=== PATIENT | female | born 1940 | race Caucasian/White ===

== ENCOUNTER 2016-07-13 13:26 | Inpatient (IN) | payer OTHER, BC ==
[~2016-07-13] VITALS: Ht 157.5 cm; Wt 130.5 kg
[~2016-07-13 13:26] MED LIST: ACTONEL150 MG PO; ACTONEL35 MG PO; ADVAIR 250-501 EACH IH; ADVAIR 250/501 DISK IH; ANTACID650 MG PO; ASPIR-LOW81 MG PO; ATIVAN1 MG PO; Advair HFA 115/21 IH; CALCIO DEL MAR500 MG PO; CALCITRIOL0.25 MC1 PO; CALCITRIOL0.25 MCG PO; CALCIUM WITH M1 EAC2 PO; CELEXA40 MG PO; CO Q-10100 MG PO; COBAL-10001000 MCG/2 IJ; COUMADIN3 M1 PO; CYANOCOBAL1000 MCG/2 IM; DECADRON1 MG PO; DIASENSE MAGNE400 MG PO; DILAUDID2 MG PO; DRISDOL50000 UNIT PO; DUONEB 2.5-0.5 M3 ML AEROSOL; DUONEB3 ML IH; ERGOCALCIF50000 UNIT PO; INSULIN; IRON325 MG PO; K-DUR10 ME2 PO; KENALOG,ARISTOC15 G3 PO; LEVOFLOXACIN500 MG PO; LOPRESSOR25 MG PO; MAG-OXIDE400 MG PO; METOPROLOL TART25 MG PO; MITRAZOL POWDER30 GM TP; MONTELUKAST SOD10 MG PO; MYSOLINE50 MG PO; Mag-Ox PO; NEUTRA-PHOS,1 PACKET PO; NEXIUM40 MG PO; POTASSIUM CHLO10 ME3 PO; PRIMIDONE50 MG PO; PROTONIX40 MG PO; Rocaltrol PO; Tums,OsCal PO; ULTRAM50 MG PO; VENTOLIN HFA18 GM IH; Vitamin B-12 PO; ZANTAC300 MG PO
[2016-07-13 14:46] LABS: HEMATOCRIT 36.5 % (36.0-46.0); MCH 30.5 PG (29.0-34.0); MCHC 32.1 G/DL (30.0-36.0); MCV 95.3 FL (83-99); MEAN PLAT.VOLUME 9.5 uM^3 (9.5-12.4); PLATELET COUNT 253 K/uL (156-360); RBC DIS.WIDTH-CV 14.8 % (11.8-14.6); RBC DIS.WIDTH-SD 49.4 % (39-53); RED BLOOD COUNT 3.83 M/uL (3.80-5.20); WHITE BLOOD COUNT 6.9 K/uL (4.1-10.2)
[2016-07-13 14:56] LABS: INTER. NORMALIZED RATIO 1.2; PROTHROMBIN TIME 12.3 (9.2-11.2); PTT 28.1 (25-32)
[2016-07-13 14:57] LABS: CHLORIDE 112 mEq/L (99-109); POTASSIUM 3.4 mEq/L (3.7-5.4); SODIUM 144 mEq/L (136-147)
[2016-07-13 14:59] LABS: GLUCOSE 94 mg/dL (70-99)
[2016-07-13 15:00] LABS: ANION GAP 13 MEQ/L (2-14)
[2016-07-13 15:02] LABS: GFR ESTIMATE (CALCULATED) 27 mL/min/
[2016-07-13 15:03] LABS: UREA NITROGEN (BUN) 19 mg/dL (9-23)
[2016-07-13 15:11] LABS: TROP-I INTERPRETATION NEGATIVE; TROPONIN-I < 0.01 ng/mL (0.0-0.30)
[2016-07-13] MEDS ORDERED: CELEXA20 MG PO (16:59)
[2016-07-13] MEDS ORDERED: AMLODIPINE BES2.5 MG PO (16:59)
[2016-07-13] MEDS ORDERED: TUMS500 MG PO (17:03)
[2016-07-13] MEDS ORDERED: EYE SUPPORT PO (17:04)
[2016-07-13] MEDS ORDERED: SUPPORT PO (17:04)
[2016-07-13] MEDS ORDERED: SPIRIVA1 INHALATI IH (17:05)
[2016-07-13] MEDS ORDERED: ADVAIR 500/501 DISK IH (17:05)
[2016-07-14 01:01] LABS: TROP-I INTERPRETATION NEGATIVE; TROPONIN-I 0.01 ng/mL (0.0-0.30)
[2016-07-14 08:05] LABS: TROP-I INTERPRETATION NEGATIVE; TROPONIN-I 0.03 ng/mL (0.0-0.30)
[2016-07-14 14:43] VITALS: BP 130/71
[2016-07-14 19:49] VITALS: BP 110/57
[2016-07-14 23:35] VITALS: BP 100/56
[2016-07-15 03:23] VITALS: BP 107/53
[2016-07-15 07:10] VITALS: BP 100/57
[2016-07-15 10:18] LABS: EOSINOPHIL (%) 1.6 % (0-5); EOSINOPHIL COUNT 0.1 K/uL (0-0.3); HEMATOCRIT 34.5 % (36.0-46.0); IMMATURE GRANULOCYTE (%) 0.2 % (0.0-0.7); IMMATURE GRANULOCYTE COUNT 0.1 K/uL; MCH 30.1 PG (29.0-34.0); MCHC 31.6 G/DL (30.0-36.0); MCV 95.3 FL (83-99); MEAN PLAT.VOLUME 9.8 uM^3 (9.5-12.4); MONOCYTE (%) 13.5 % (3-12); MONOCYTE COUNT 0.9 K/uL (0-0.8); NEUTROPHIL (%) 67.6 % (45-76); NEUTROPHIL COUNT 4.3 K/uL (1.8-6.4); PLATELET COUNT 249 K/uL (156-360); RBC DIS.WIDTH-CV 14.8 % (11.8-14.6); RBC DIS.WIDTH-SD 48.5 % (39-53); RED BLOOD COUNT 3.62 M/uL (3.80-5.20); WHITE BLOOD COUNT 6.3 K/uL (4.1-10.2)
[2016-07-15 10:39] LABS: ANION GAP 11 MEQ/L (2-14); CHLORIDE 107 MEQ/L (99-109); GFR ESTIMATE (CALCULATED) 29 mL/min/; GLUCOSE 112 mg/dL (70-99); SAMPLE HEMOLYSIS CHECK 0; SAMPLE ICTERIC CHECK 0; SAMPLE LIPEMIA CHECK 0; SODIUM 139 MEQ/L (136-147); UREA NITROGEN (BUN) 20 mg/dL (9-23)
[2016-07-15 11:45] VITALS: BP 111/62
[2016-07-15 15:40] VITALS: BP 100/61
[2016-07-15 19:05] VITALS: BP 126/74
[2016-07-15 22:55] VITALS: BP 116/57
[2016-07-16 03:50] VITALS: BP 96/65
[2016-07-16 07:19] LABS: HEMATOCRIT 32.2 % (36.0-46.0); MCH 30.5 PG (29.0-34.0); MCHC 32.3 G/DL (30.0-36.0); MCV 94.4 FL (83-99); MEAN PLAT.VOLUME 9.8 uM^3 (9.5-12.4); PLATELET COUNT 216 K/uL (156-360); RBC DIS.WIDTH-SD 51.8 % (39-53); RED BLOOD COUNT 3.41 M/uL (3.80-5.20); WHITE BLOOD COUNT 5.3 K/uL (4.1-10.2)
[2016-07-16 07:42] LABS: ANION GAP 9 MEQ/L (2-14); CHLORIDE 109 MEQ/L (99-109); GFR ESTIMATE (CALCULATED) 27 mL/min/; GLUCOSE 97 mg/dL (70-99); MAGNESIUM 1.2 mg/dl (1.3-2.7); POTASSIUM 4.2 MEQ/L (3.7-5.4); SAMPLE HEMOLYSIS CHECK 0; SAMPLE ICTERIC CHECK 0; SAMPLE LIPEMIA CHECK 0; SODIUM 140 MEQ/L (136-147); UREA NITROGEN (BUN) 22 mg/dL (9-23)
[2016-07-16 07:53] LABS: EOSINOPHIL (%) 1.9 % (0-5); EOSINOPHIL COUNT 0.1 K/uL (0-0.3); IMMATURE GRANULOCYTE (%) 0.2 % (0.0-0.7); LYMPHOCYTE COUNT 0.9 K/uL (1.0-2.8); MONOCYTE (%) 17.6 % (3-12); MONOCYTE COUNT 0.9 K/uL (0-0.8); NEUTROPHIL (%) 62.4 % (45-76); NEUTROPHIL COUNT 3.3 K/uL (1.8-6.4)
[2016-07-16 08:24] VITALS: BP 97/68
[2016-07-16 19:44] VITALS: BP 103/56
[2016-07-16 23:00] VITALS: BP 117/63
[2016-07-17 03:49] VITALS: BP 116/66
[2016-07-17 06:43] LABS: EOSINOPHIL (%) 2.3 % (0-5); EOSINOPHIL COUNT 0.1 K/uL (0-0.3); HEMATOCRIT 32.6 % (36.0-46.0); IMMATURE GRANULOCYTE (%) 0.2 % (0.0-0.7); LYMPHOCYTE COUNT 0.7 K/uL (1.0-2.8); MCH 29.4 PG (29.0-34.0); MCV 94.8 FL (83-99); MEAN PLAT.VOLUME 9.6 uM^3 (9.5-12.4); MONOCYTE COUNT 0.9 K/uL (0-0.8); NEUTROPHIL (%) 67.6 % (45-76); NEUTROPHIL COUNT 3.6 K/uL (1.8-6.4); PLATELET COUNT 229 K/uL (156-360); RBC DIS.WIDTH-CV 15.1 % (11.8-14.6); RED BLOOD COUNT 3.44 M/uL (3.80-5.20); WHITE BLOOD COUNT 5.3 K/uL (4.1-10.2)
[2016-07-17 07:07] LABS: ANION GAP 10 MEQ/L (2-14); CHLORIDE 109 MEQ/L (99-109); GFR ESTIMATE (CALCULATED) 27 mL/min/; GLUCOSE 106 mg/dL (70-99); POTASSIUM 4.7 MEQ/L (3.7-5.4); SAMPLE HEMOLYSIS CHECK 0; SAMPLE ICTERIC CHECK 0; SAMPLE LIPEMIA CHECK 0; SODIUM 139 MEQ/L (136-147); UREA NITROGEN (BUN) 24 mg/dL (9-23)
[2016-07-17 07:15] VITALS: BP 122/54
[2016-07-17 08:46] LABS: MAGNESIUM 1.7 mg/dl (1.3-2.7)
[2016-07-17 10:56] VITALS: BP 124/58
[2016-07-17 19:53] VITALS: BP 145/64
[2016-07-17 23:43] VITALS: BP 130/67
[2016-07-18 03:52] VITALS: BP 116/61
[2016-07-18 06:42] LABS: EOSINOPHIL COUNT 0.2 K/uL (0-0.3); LYMPHOCYTE COUNT 0.8 K/uL (1.0-2.8); MCH 29.5 PG (29.0-34.0); MCHC 31.1 G/DL (30.0-36.0); MCV 94.6 FL (83-99); MEAN PLAT.VOLUME 9.7 uM^3 (9.5-12.4); MONOCYTE (%) 15.2 % (3-12); MONOCYTE COUNT 0.8 K/uL (0-0.8); NEUTROPHIL COUNT 3.3 K/uL (1.8-6.4); PLATELET COUNT 252 K/uL (156-360); RBC DIS.WIDTH-CV 14.9 % (11.8-14.6); RBC DIS.WIDTH-SD 51.6 % (39-53); WHITE BLOOD COUNT 4.9 K/uL (4.1-10.2)
[2016-07-18 07:13] LABS: ANION GAP 10 MEQ/L (2-14); CHLORIDE 109 MEQ/L (99-109); GFR ESTIMATE (CALCULATED) 31 mL/min/; GLUCOSE 102 mg/dL (70-99); MAGNESIUM 1.7 mg/dl (1.3-2.7); POTASSIUM 4.7 MEQ/L (3.7-5.4); SAMPLE HEMOLYSIS CHECK 0; SAMPLE ICTERIC CHECK 0; SAMPLE LIPEMIA CHECK 0; SODIUM 139 MEQ/L (136-147); UREA NITROGEN (BUN) 21 mg/dL (9-23)
[2016-07-18 07:42] VITALS: BP 132/74
[2016-07-18 09:14] LABS: Estimated Average Glucose 103 mg/dL (70-123); HEMOGLOBIN A1c (GLYCOHEMOGLOB) 5.2 % HGB (Below 5.7)
[2016-07-18 11:48] VITALS: BP 122/77
[2016-07-18 16:49] VITALS: BP 127/82
[2016-07-18 19:17] VITALS: BP 125/78
[2016-07-18 23:16] VITALS: BP 107/77
[2016-07-19 03:46] VITALS: BP 111/67
[2016-07-19 07:23] LABS: ANION GAP 8 MEQ/L (2-14); CHLORIDE 112 MEQ/L (99-109); GFR ESTIMATE (CALCULATED) 29 mL/min/; GLUCOSE 99 mg/dL (70-99); MAGNESIUM 1.7 mg/dl (1.3-2.7); POTASSIUM 4.9 MEQ/L (3.7-5.4); SAMPLE HEMOLYSIS CHECK 0; SAMPLE ICTERIC CHECK 0; SAMPLE LIPEMIA CHECK 0; SODIUM 140 MEQ/L (136-147); UREA NITROGEN (BUN) 19 mg/dL (9-23)
[2016-07-19 08:15] VITALS: BP 134/77
[2016-07-19 08:27] LABS: EOSINOPHIL (%) 3.4 % (0-5); EOSINOPHIL COUNT 0.1 K/uL (0-0.3); HEMATOCRIT 31.2 % (36.0-46.0); LYMPHOCYTE COUNT 0.7 K/uL (1.0-2.8); MCH 30.6 PG (29.0-34.0); MCHC 32.1 G/DL (30.0-36.0); MCV 95.4 FL (83-99); MONOCYTE (%) 17.1 % (3-12); MONOCYTE COUNT 0.7 K/uL (0-0.8); NEUTROPHIL (%) 61.4 % (45-76); NEUTROPHIL COUNT 2.6 K/uL (1.8-6.4); PLATELET COUNT 235 K/uL (156-360); RBC DIS.WIDTH-CV 15.1 % (11.8-14.6); RBC DIS.WIDTH-SD 52.3 % (39-53); RED BLOOD COUNT 3.27 M/uL (3.80-5.20); WHITE BLOOD COUNT 4.2 K/uL (4.1-10.2)
[2016-07-19 11:43] VITALS: BP 116/74
[2016-07-19 11:59] VITALS: BP 122/62
[2016-07-19 19:00] VITALS: BP 110/57
[2016-07-20] VITALS: BP 105/72
[2016-07-20 04:00] VITALS: BP 125/71
[2016-07-20 08:09] VITALS: BP 133/73
[2016-07-20 12:09] VITALS: BP 121/81
[2016-07-20 12:23] LABS: INTER. NORMALIZED RATIO 1.2; PROTHROMBIN TIME 11.8 (9.2-11.2)
[2016-07-20 15:32] VITALS: BP 125/80
[2016-07-20 20:00] VITALS: BP 125/78
[2016-07-21 00:05] VITALS: BP 115/65
[2016-07-21 04:13] VITALS: BP 114/71
[2016-07-21 07:39] LABS: EOSINOPHIL (%) 3.7 % (0-5); EOSINOPHIL COUNT 0.2 K/uL (0-0.3); HEMATOCRIT 33.3 % (36.0-46.0); IMMATURE GRANULOCYTE (%) 0.2 % (0.0-0.7); LYMPHOCYTE COUNT 0.9 K/uL (1.0-2.8); MCH 30.3 PG (29.0-34.0); MCHC 31.2 G/DL (30.0-36.0); MCV 97.1 FL (83-99); MEAN PLAT.VOLUME 9.8 uM^3 (9.5-12.4); MONOCYTE (%) 15.9 % (3-12); MONOCYTE COUNT 0.6 K/uL (0-0.8); NEUTROPHIL (%) 58.4 % (45-76); NEUTROPHIL COUNT 2.4 K/uL (1.8-6.4); PLATELET COUNT 243 K/uL (156-360); RBC DIS.WIDTH-CV 15.1 % (11.8-14.6); RBC DIS.WIDTH-SD 53.3 % (39-53); RED BLOOD COUNT 3.43 M/uL (3.80-5.20)
[2016-07-21 07:45] LABS: INTER. NORMALIZED RATIO 1.2
[2016-07-21 07:58] LABS: ANION GAP 8 MEQ/L (2-14); CHLORIDE 111 MEQ/L (99-109); GFR ESTIMATE (CALCULATED) 29 mL/min/; GLUCOSE 92 mg/dL (70-99); MAGNESIUM 1.7 mg/dl (1.3-2.7); POTASSIUM 5.1 MEQ/L (3.7-5.4); SAMPLE HEMOLYSIS CHECK 0; SAMPLE ICTERIC CHECK 0; SAMPLE LIPEMIA CHECK 0; SODIUM 139 MEQ/L (136-147); UREA NITROGEN (BUN) 18 mg/dL (9-23)
[2016-07-21 08:25] VITALS: BP 95/58
[2016-07-21 10:37] VITALS: BP 131/79
[2016-07-21 11:15] LABS: VANCOMYCIN, TROUGH 16.2 MCG/ML (10-20)
[2016-07-21] MEDS ORDERED: DOXYCYCLINE HY100 M3 PO (16:44)
[2016-07-21] MEDS ORDERED: COUMADIN1 MG PO (16:45)
[2016-07-21] MEDS ORDERED: DILTIAZEM 24HR180 MG PO (16:46)
[2016-07-21] MEDS ORDERED: LOPRESSOR50 MG PO (16:46)
[2016-07-21 19:48] VITALS: BP 145/85
[2016-07-21 23:51] VITALS: BP 109/65
[2016-07-22 03:25] VITALS: BP 111/63
[2016-07-22 07:03] VITALS: BP 132/77
[2016-07-22 07:50] LABS: INTER. NORMALIZED RATIO 1.2
[2016-07-22] MEDS ORDERED: LOVENOX150 MG/1 M SC (10:19)
== END 2016-07-22 13:05 | DRG 571 ==
LOC: EME 13:26 → 2EAST 18:36 → EDOF 18:36 → 2EAST 07-14 14:16
PROVIDERS: Emergency Medicine; Hospitalist; Internal Medicine; Physician Assistant Medical; Surgery
PROC: 0HBJXZZ Excision of Left Upper Leg Skin, External Approach (ICD-10-PCS; principal; 2016-07-17)
DX: L03.116 Cellulitis of left lower limb (principal); Z68.43 Body mass index [BMI] 50.0-59.9, adult; L02.416 Cutaneous abscess of left lower limb; I48.91 Unspecified atrial fibrillation; I27.2 Other secondary pulmonary hypertension; E66.01 Morbid (severe) obesity due to excess calories; I12.9 Hypertensive chronic kidney disease with stage 1 through stage 4 chronic kidney disease, or unspecified chronic kidney disease; N18.3 Chronic kidney disease, stage 3 (moderate); E87.6 Hypokalemia; J44.9 Chronic obstructive pulmonary disease, unspecified; E53.8 Deficiency of other specified B group vitamins; K21.9 Gastro-esophageal reflux disease without esophagitis; R26.2 Difficulty in walking, not elsewhere classified; Z86.711 Personal history of pulmonary embolism; F32.9 Major depressive disorder, single episode, unspecified; E11.22 Type 2 diabetes mellitus with diabetic chronic kidney disease; I08.1 Rheumatic disorders of both mitral and tricuspid valves; I89.0 Lymphedema, not elsewhere classified; I87.2 Venous insufficiency (chronic) (peripheral); R25.1 Tremor, unspecified; A48.8 Other specified bacterial diseases
CPT/HCPCS: 76882; 80048; 80202; 83036; 83605; 83735; 84484; 85025; 85027; 85610; 85730; 87040; 87070; 87075; 87076; 87205; 93005; 93306; 93971; 94640; 94640 76; 99202; 99281; 99285; J1170; J1644; J1650; J2250; J2405; J3010; J3370; J3475; J7120

== ENCOUNTER 2016-07-26 23:57 | Inpatient (IN) | payer OTHER, BC ==
[~2016-07-26] VITALS: Ht 160 cm; Wt 137.1 kg
[~2016-07-26 23:57] MED LIST changes: +ADVAIR 500/501 DISK IH; +AMLODIPINE BES2.5 MG PO; +CELEXA20 MG PO; +COUMADIN1 MG PO; +DILTIAZEM 24HR180 MG PO; +DOXYCYCLINE HY100 M3 PO; +EYE SUPPORT PO; +LOPRESSOR50 MG PO; +LOVENOX150 MG/1 M SC; +SPIRIVA1 INHALATI IH; +SUPPORT PO; +TUMS500 MG PO
[2016-07-27] VITALS (7 sets, daily range): BP systolic 104–152; BP diastolic 63–96
[2016-07-27] MEDS ORDERED: CARDIZEM CD,CA180 MG PO (00:38)
[2016-07-27] MEDS ORDERED: COUMADIN4 MG PO (00:40)
[2016-07-27] MEDS ORDERED: OMEPRAZOLE20 MG PO (00:41)
[2016-07-27] MEDS ORDERED: ZOFRAN4 MG PO (00:41)
[2016-07-27] MEDS ORDERED: DUONEB 2.5-0.5 M3 ML AEROSOL (00:43)
[2016-07-27] MEDS ORDERED: MILK OF MAGN PO (00:44)
[2016-07-27] MEDS ORDERED: ENEMA133 M2 PR (00:45)
[2016-07-27] MEDS ORDERED: DULCOLAX10 MG PR (00:45)
[2016-07-27 02:06] LABS: HEMATOCRIT 36.1 % (36.0-46.0); MCH 29.5 PG (29.0-34.0); MCHC 31.6 G/DL (30.0-36.0); MCV 93.5 FL (83-99); MEAN PLAT.VOLUME 9.6 uM^3 (9.5-12.4); PLATELET COUNT 243 K/uL (156-360); RBC DIS.WIDTH-CV 14.1 % (11.8-14.6); RBC DIS.WIDTH-SD 46.4 % (39-53); RED BLOOD COUNT 3.86 M/uL (3.80-5.20); WHITE BLOOD COUNT 6.4 K/uL (4.1-10.2)
[2016-07-27 02:16] LABS: CHLORIDE 108 mEq/L (99-109); POTASSIUM 5.1 mEq/L (3.7-5.4); SODIUM 140 mEq/L (136-147)
[2016-07-27 02:17] LABS: GLUCOSE 97 mg/dL (70-99)
[2016-07-27 02:19] LABS: ANION GAP 13 MEQ/L (2-14)
[2016-07-27 02:21] LABS: GFR ESTIMATE (CALCULATED) 33 mL/min/
[2016-07-27 02:22] LABS: UREA NITROGEN (BUN) 17 mg/dL (9-23)
[2016-07-27 02:27] LABS: TROP-I INTERPRETATION NEGATIVE; TROPONIN-I < 0.01 ng/mL (0.0-0.30)
[2016-07-27 03:12] LABS: INTER. NORMALIZED RATIO 1.3; PROTHROMBIN TIME 13.4 (9.2-11.2); PTT 26.8 (25-32)
[2016-07-27 08:45] LABS: TROP-I INTERPRETATION NEGATIVE; TROPONIN-I 0.01 ng/mL (0.0-0.30)
[2016-07-27 09:20] LABS: METH RESISTANT S AUREUS PCR NEGATIVE (NEGATIVE); PROBE CHECK PASS; SPECIMEN PROCESSING CONTROL PASS
[2016-07-27 10:05] LABS: INFLUENZA A VIRAL ANTIGEN POSITIVE; INFLUENZA B VIRAL ANTIGEN NEGATIVE
[2016-07-27 14:34] LABS: TROP-I INTERPRETATION NEGATIVE; TROPONIN-I 0.03 ng/mL (0.0-0.30)
[2016-07-28] VITALS (7 sets, daily range): BP systolic 87–126; BP diastolic 53–80
[2016-07-28 04:43] LABS: C DIFF TOXIN NEGATIVE (NEGATIVE)
[2016-07-28 04:44] LABS: PROBE CHECK PASS; SPECIMEN PROCESSING CONTROL PASS
[2016-07-28 05:57] LABS: HEMATOCRIT 33.1 % (36.0-46.0); MCH 28.9 PG (29.0-34.0); MCHC 31.1 G/DL (30.0-36.0); MEAN PLAT.VOLUME 9.6 uM^3 (9.5-12.4); PLATELET COUNT 215 K/uL (156-360); RBC DIS.WIDTH-CV 14.1 % (11.8-14.6); RBC DIS.WIDTH-SD 47.9 % (39-53); RED BLOOD COUNT 3.56 M/uL (3.80-5.20)
[2016-07-28 06:06] LABS: WHITE BLOOD COUNT 3.6 K/uL (4.1-10.2)
[2016-07-28 06:13] LABS: ANION GAP 11 MEQ/L (2-14); CHLORIDE 102 MEQ/L (99-109); GFR ESTIMATE (CALCULATED) 33 mL/min/; GLUCOSE 88 mg/dL (70-99); SAMPLE HEMOLYSIS CHECK 0; SAMPLE ICTERIC CHECK 0; SAMPLE LIPEMIA CHECK 0; SODIUM 137 MEQ/L (136-147); UREA NITROGEN (BUN) 18 mg/dL (9-23)
[2016-07-28 06:16] LABS: POTASSIUM 3.8 MEQ/L (3.7-5.4)
[2016-07-28 10:12] LABS: ALKALINE PHOSPHATASE 60 IU/L (3-129); DIRECT BILIRUBIN 0.2 mg/dL (0.0-0.3); TOTAL BILIRUBIN 0.4 MG/DL (0.0-1.0)
[2016-07-28 10:59] LABS: INTER. NORMALIZED RATIO 1.8; PROTHROMBIN TIME 19.1 (9.2-11.2)
[2016-07-29] VITALS (7 sets, daily range): BP systolic 123–137; BP diastolic 60–87
[2016-07-29 06:38] LABS: HEMATOCRIT 34.5 % (36.0-46.0); MCH 28.7 PG (29.0-34.0); MCHC 30.7 G/DL (30.0-36.0); MCV 93.5 FL (83-99); MEAN PLAT.VOLUME 9.8 uM^3 (9.5-12.4); PLATELET COUNT 239 K/uL (156-360); RBC DIS.WIDTH-CV 14.1 % (11.8-14.6); RBC DIS.WIDTH-SD 48.4 % (39-53); RED BLOOD COUNT 3.69 M/uL (3.80-5.20); WHITE BLOOD COUNT 4.1 K/uL (4.1-10.2)
[2016-07-29 06:52] LABS: INTER. NORMALIZED RATIO 1.7; PROTHROMBIN TIME 17.8 (9.2-11.2)
[2016-07-29 06:53] LABS: EOSINOPHIL (%) 0 % (0-5); IMMATURE GRANULOCYTE (%) 0.5 % (0.0-0.7); LYMPHOCYTE COUNT 0.5 K/uL (1.0-2.8); MONOCYTE (%) 17.5 % (3-12); MONOCYTE COUNT 0.7 K/uL (0-0.8); NEUTROPHIL (%) 70.1 % (45-76); NEUTROPHIL COUNT 2.9 K/uL (1.8-6.4)
[2016-07-29 07:05] LABS: ALKALINE PHOSPHATASE 65 IU/L (3-129); ANION GAP 12 MEQ/L (2-14); CHLORIDE 105 MEQ/L (99-109); GFR ESTIMATE (CALCULATED) 31 mL/min/; GLUCOSE 106 mg/dL (70-99); POTASSIUM 3.7 MEQ/L (3.7-5.4); SAMPLE HEMOLYSIS CHECK 0; SAMPLE ICTERIC CHECK 0; SAMPLE LIPEMIA CHECK 0; SODIUM 141 MEQ/L (136-147); UREA NITROGEN (BUN) 20 mg/dL (9-23)
[2016-07-29 07:09] LABS: TOTAL BILIRUBIN 0.3 MG/DL (0.0-1.0)
[2016-07-30 05:00] VITALS: BP 139/79
[2016-07-30 07:17] LABS: EOSINOPHIL (%) 0 % (0-5); HEMATOCRIT 35.9 % (36.0-46.0); IMMATURE GRANULOCYTE (%) 0.3 % (0.0-0.7); LYMPHOCYTE COUNT 0.9 K/uL (1.0-2.8); MCHC 30.9 G/DL (30.0-36.0); MCV 93.7 FL (83-99); MEAN PLAT.VOLUME 9.9 uM^3 (9.5-12.4); MONOCYTE (%) 15.3 % (3-12); MONOCYTE COUNT 0.9 K/uL (0-0.8); NEUTROPHIL (%) 68.2 % (45-76); PLATELET COUNT 275 K/uL (156-360); RBC DIS.WIDTH-CV 14.3 % (11.8-14.6); RBC DIS.WIDTH-SD 48.9 % (39-53); RED BLOOD COUNT 3.83 M/uL (3.80-5.20)
[2016-07-30 07:18] LABS: WHITE BLOOD COUNT 5.8 K/uL (4.1-10.2)
[2016-07-30 07:19] VITALS: BP 174/89
[2016-07-30 07:21] LABS: ANION GAP 9 MEQ/L (2-14); CHLORIDE 105 MEQ/L (99-109); GFR ESTIMATE (CALCULATED) 31 mL/min/; GLUCOSE 96 mg/dL (70-99); POTASSIUM 3.6 MEQ/L (3.7-5.4); SAMPLE HEMOLYSIS CHECK 0; SAMPLE ICTERIC CHECK 0; SAMPLE LIPEMIA CHECK 0; SODIUM 138 MEQ/L (136-147); UREA NITROGEN (BUN) 23 mg/dL (9-23)
[2016-07-30 08:22] LABS: INTER. NORMALIZED RATIO 1.6
[2016-07-30 11:30] VITALS: BP 154/91
[2016-07-30 16:15] VITALS: BP 144/81
[2016-07-30 19:40] VITALS: BP 139/89
[2016-07-31] VITALS (7 sets, daily range): BP systolic 118–170; BP diastolic 78–88
[2016-07-31 07:34] LABS: EOSINOPHIL (%) 0.2 % (0-5); HEMATOCRIT 34.3 % (36.0-46.0); IMMATURE GRANULOCYTE (%) 0.4 % (0.0-0.7); LYMPHOCYTE COUNT 1.1 K/uL (1.0-2.8); MCH 30.1 PG (29.0-34.0); MCHC 32.1 G/DL (30.0-36.0); MEAN PLAT.VOLUME 9.9 uM^3 (9.5-12.4); MONOCYTE (%) 14.1 % (3-12); MONOCYTE COUNT 0.7 K/uL (0-0.8); NEUTROPHIL (%) 60.7 % (45-76); NEUTROPHIL COUNT 2.8 K/uL (1.8-6.4); PLATELET COUNT 235 K/uL (156-360); RBC DIS.WIDTH-CV 14.3 % (11.8-14.6); RBC DIS.WIDTH-SD 49.4 % (39-53); RED BLOOD COUNT 3.65 M/uL (3.80-5.20); WHITE BLOOD COUNT 4.7 K/uL (4.1-10.2)
[2016-07-31 07:41] LABS: INTER. NORMALIZED RATIO 1.7; PROTHROMBIN TIME 17.1 (9.2-11.2)
[2016-07-31 08:08] LABS: ANION GAP 9 MEQ/L (2-14); CHLORIDE 106 MEQ/L (99-109); GFR ESTIMATE (CALCULATED) 31 mL/min/; GLUCOSE 92 mg/dL (70-99); POTASSIUM 3.5 MEQ/L (3.7-5.4); SAMPLE HEMOLYSIS CHECK 0; SAMPLE ICTERIC CHECK 0; SAMPLE LIPEMIA CHECK 0; SODIUM 141 MEQ/L (136-147); UREA NITROGEN (BUN) 23 mg/dL (9-23)
[2016-08-01 03:10] VITALS: BP 125/84
[2016-08-01 07:05] LABS: EOSINOPHIL (%) 0.2 % (0-5); HEMATOCRIT 36.1 % (36.0-46.0); IMMATURE GRANULOCYTE (%) 0.6 % (0.0-0.7); LYMPHOCYTE COUNT 1.3 K/uL (1.0-2.8); MCH 28.8 PG (29.0-34.0); MCV 92.8 FL (83-99); MEAN PLAT.VOLUME 9.8 uM^3 (9.5-12.4); MONOCYTE (%) 13.5 % (3-12); MONOCYTE COUNT 0.6 K/uL (0-0.8); NEUTROPHIL (%) 56.8 % (45-76); NEUTROPHIL COUNT 2.7 K/uL (1.8-6.4); PLATELET COUNT 231 K/uL (156-360); RBC DIS.WIDTH-CV 14.5 % (11.8-14.6); RBC DIS.WIDTH-SD 48.8 % (39-53); RED BLOOD COUNT 3.89 M/uL (3.80-5.20); WHITE BLOOD COUNT 4.7 K/uL (4.1-10.2)
[2016-08-01 07:26] LABS: INTER. NORMALIZED RATIO 1.8; PROTHROMBIN TIME 18.2 (9.2-11.2)
[2016-08-01 07:33] LABS: ANION GAP 10 MEQ/L (2-14); CHLORIDE 109 MEQ/L (99-109); GFR ESTIMATE (CALCULATED) 33 mL/min/; GLUCOSE 90 mg/dL (70-99); SAMPLE HEMOLYSIS CHECK 0; SAMPLE ICTERIC CHECK 0; SAMPLE LIPEMIA CHECK 0; SODIUM 143 MEQ/L (136-147); UREA NITROGEN (BUN) 20 mg/dL (9-23)
[2016-08-01 07:34] VITALS: BP 138/95
[2016-08-01 11:10] VITALS: BP 136/83
[2016-08-01] MEDS ORDERED: LOPRESSOR50 MG PO (13:04)
[2016-08-01] MEDS ORDERED: CARDIZEM90 MG PO (13:05)
[2016-08-01] MEDS ORDERED: PREDNISONE20 MG PO (13:07)
[2016-08-01] MEDS ORDERED: SSD25GM TP (13:08)
[2016-08-01] MEDS ORDERED: Zeasorb Antifungal T TP (13:10)
[2016-08-01] MEDS ORDERED: ULTRAM50 MG PO (13:19)
[2016-08-01 15:30] VITALS: BP 154/96
== END 2016-08-01 17:20 | DRG 308 ==
LOC: EME → EDBD 23:57 → EME 23:57 → 4WEST 07-27 03:44 → 4EAST 07-27 03:44 → EDOF 07-27 03:44 → 4WEST 07-27 07:40 → 4EAST 07-28 21:01
PROVIDERS: Emergency Medicine; Family Medicine; Hospitalist; Internal Medicine; Internal Medicine Cardiovascular Disease; Internal Medicine Critical Care Medicine; Student in an Organized Health Care Education/Training Program
DX: I48.91 Unspecified atrial fibrillation (principal); J96.01 Acute respiratory failure with hypoxia; J91.8 Pleural effusion in other conditions classified elsewhere; J81.1 Chronic pulmonary edema; I27.2 Other secondary pulmonary hypertension; Z86.711 Personal history of pulmonary embolism; J44.1 Chronic obstructive pulmonary disease with (acute) exacerbation; I12.9 Hypertensive chronic kidney disease with stage 1 through stage 4 chronic kidney disease, or unspecified chronic kidney disease; N18.3 Chronic kidney disease, stage 3 (moderate); E66.01 Morbid (severe) obesity due to excess calories; F39 Unspecified mood [affective] disorder; K21.9 Gastro-esophageal reflux disease without esophagitis; J10.1 Influenza due to other identified influenza virus with other respiratory manifestations; L03.116 Cellulitis of left lower limb; G47.33 Obstructive sleep apnea (adult) (pediatric); J44.0 Chronic obstructive pulmonary disease with (acute) lower respiratory infection; J20.9 Acute bronchitis, unspecified; Z87.891 Personal history of nicotine dependence; I27.81 Cor pulmonale (chronic); E04.1 Nontoxic single thyroid nodule; J98.11 Atelectasis; I70.0 Atherosclerosis of aorta; I25.10 Atherosclerotic heart disease of native coronary artery without angina pectoris; Z68.43 Body mass index [BMI] 50.0-59.9, adult; S81.812S Laceration without foreign body, left lower leg, sequela; W45.8XXS Other foreign body or object entering through skin, sequela
CPT/HCPCS: 71020; 71250; 80048; 80053; 80076; 81003; 83880; 84484; 85025; 85027; 85610; 85730; 87493; 87502; 87641; 93005; 94640; 94640 76; 94760; 94799; 99202; 99281; 99285; J1650; J1940; J2920; J2930; J7512

== ENCOUNTER 2016-08-06 19:56 | Inpatient (IN) | payer OTHER, BC ==
[~2016-08-06] VITALS: Ht 160 cm; Wt 139.5 kg
[~2016-08-06 19:56] MED LIST changes: +CARDIZEM CD,CA180 MG PO; +CARDIZEM90 MG PO; +COUMADIN4 MG PO; +DULCOLAX10 MG PR; +ENEMA133 M2 PR; +MILK OF MAGN PO; +OMEPRAZOLE20 MG PO; +PREDNISONE20 MG PO; +SSD25GM TP; +ZOFRAN4 MG PO; +Zeasorb Antifungal T TP
[2016-08-06 21:14] LABS: EOSINOPHIL (%) 0.1 % (0-5); HEMATOCRIT 27.7 % (36.0-46.0); IMMATURE GRANULOCYTE (%) 2.9 % (0.0-0.7); IMMATURE GRANULOCYTE COUNT 0.4 K/uL; INSTRUMENT ABS NEUTROPHIL CT 10.5 K/uL; LYMPHOCYTE COUNT 1.4 K/uL (1.0-2.8); MCH 29.6 PG (29.0-34.0); MCHC 31.4 G/DL (30.0-36.0); MCV 94.2 FL (83-99); MEAN PLAT.VOLUME 9.9 uM^3 (9.5-12.4); MONOCYTE (%) 7.6 % (3-12); NEUTROPHIL (%) 78.9 % (45-76); NEUTROPHIL COUNT 10.5 K/uL (1.8-6.4); NRBC (%) 0.2 /100 WBC (0-0); RBC DIS.WIDTH-SD 47.8 % (39-53)
[2016-08-06 21:19] LABS: RED BLOOD COUNT 2.94 M/uL (3.80-5.20); WHITE BLOOD COUNT 13.3 K/uL (4.1-10.2)
[2016-08-06 21:20] LABS: PLATELET COUNT 350 K/uL (156-360)
[2016-08-06 21:25] LABS: INTER. NORMALIZED RATIO 1.3; PROTHROMBIN TIME 13.7 (9.2-11.2); PTT 26.9 (25-32)
[2016-08-06 21:41] LABS: CHLORIDE 111 mEq/L (99-109); POTASSIUM 4.5 mEq/L (3.7-5.4); SODIUM 143 mEq/L (136-147)
[2016-08-06 21:43] LABS: GLUCOSE 197 mg/dL (70-99)
[2016-08-06 21:44] LABS: ANION GAP 11 MEQ/L (2-14)
[2016-08-06 21:45] LABS: TOTAL BILIRUBIN 0.5 mg/dL (0.0-1.0)
[2016-08-06 21:46] LABS: ALKALINE PHOSPHATASE 47 IU/L (3-129)
[2016-08-06 21:47] LABS: GFR ESTIMATE (CALCULATED) 36 mL/min/
[2016-08-06 21:48] LABS: TROP-I INTERPRETATION NEGATIVE; TROPONIN-I < 0.01 ng/mL (0.0-0.30); UREA NITROGEN (BUN) 18 mg/dL (9-23)
[2016-08-06 22:22] VITALS: BP 84/60
[2016-08-06 22:37] VITALS: BP 70/58
[2016-08-06 23:24] VITALS: BP 90/74
[2016-08-06 23:41] VITALS: BP 79/57
[2016-08-07] VITALS (39 sets, daily range): BP systolic 77–142; BP diastolic 40–87
[2016-08-07] MEDS ORDERED: CO Q-10-VIT E-1 EACH PO (01:33)
[2016-08-07] MEDS ORDERED: ADVAIR HFA120 INHAL1 IH (01:36)
[2016-08-07] MEDS ORDERED: COUMADIN5 MG PO (01:37)
[2016-08-07] MEDS ORDERED: ACETAMINOPHEN325 M1 PO (01:39)
[2016-08-07 04:54] LABS: ADD MIUA? NO; BILIRUBIN NEGATIVE; BLOOD NEGATIVE; COLOR YELLOW ((YELLOW)); GLUCOSE (STRIP) NEGATIVE; KETONES NEGATIVE; LEUKOCYTES NEGATIVE; NITRITE NEGATIVE; PROTEIN (STRIP) NEGATIVE; SPECIFIC GRAVITY 1.032 (1.000-1.030); UCUL ADDED? NO; UROBILINOGEN 0.2 MG/DL (0.2-1.0)
[2016-08-07 04:57] LABS: METH RESISTANT S AUREUS PCR NEGATIVE (NEGATIVE)
[2016-08-07 05:06] LABS: PROBE CHECK PASS; SPECIMEN PROCESSING CONTROL PASS
[2016-08-07 05:44] LABS: POINT-OF-CARE METER ID UU13113731
[2016-08-07 06:51] LABS: INTER. NORMALIZED RATIO 1.3; PROTHROMBIN TIME 12.8 (9.2-11.2)
[2016-08-07 07:21] LABS: INFLUENZA A VIRAL ANTIGEN POSITIVE; INFLUENZA B VIRAL ANTIGEN NEGATIVE
[2016-08-07 07:33] LABS: ALKALINE PHOSPHATASE 40 IU/L (3-129); ANION GAP 11 MEQ/L (2-14); CHLORIDE 111 MEQ/L (99-109); GFR ESTIMATE (CALCULATED) 39 mL/min/; POTASSIUM 4.3 MEQ/L (3.7-5.4); SAMPLE HEMOLYSIS CHECK 0; SAMPLE ICTERIC CHECK 0; SAMPLE LIPEMIA CHECK 0; SODIUM 145 MEQ/L (136-147); TOTAL BILIRUBIN 0.8 MG/DL (0.0-1.0); UREA NITROGEN (BUN) 18 mg/dL (9-23)
[2016-08-07 07:44] LABS: GLUCOSE 103 mg/dL (70-99)
[2016-08-07 08:09] LABS: HEMATOCRIT 28.6 % (36.0-46.0); MCHC 32.2 G/DL (30.0-36.0); MCV 93.2 FL (83-99); NRBC (%) 0.2 /100 WBC (0-0); RBC DIS.WIDTH-CV 14.2 % (11.8-14.6); RBC DIS.WIDTH-SD 47.9 % (39-53); RED BLOOD COUNT 3.07 M/uL (3.80-5.20); WHITE BLOOD COUNT 13.5 K/uL (4.1-10.2)
[2016-08-07 10:52] LABS: POINT-OF-CARE METER ID UU13113803
[2016-08-07 13:40] LABS: HEMATOCRIT 32.3 % (36.0-46.0); MCV 94.2 FL (83-99)
[2016-08-07 15:23] LABS: POINT-OF-CARE METER ID UU13113731
[2016-08-07 18:13] LABS: HEMATOCRIT 32.3 % (36.0-46.0)
[2016-08-07 18:44] LABS: POINT-OF-CARE METER ID UU14162636
[2016-08-07 22:32] LABS: POINT-OF-CARE METER ID UU13113731; POINT-OF-CARE USER ID PHATLC
[2016-08-08] VITALS (13 sets, daily range): BP systolic 0–156; BP diastolic 0–101
[2016-08-08 01:02] LABS: HEMATOCRIT 31.4 % (36.0-46.0); MCV 91.5 FL (83-99)
[2016-08-08 02:52] LABS: POINT-OF-CARE METER ID UU14174217
[2016-08-08 05:39] LABS: POINT-OF-CARE METER ID UU14174217; POINT-OF-CARE USER ID PHATLC
[2016-08-08 06:12] LABS: EOSINOPHIL (%) 1.4 % (0-5); EOSINOPHIL COUNT 0.1 K/uL (0-0.3); HEMATOCRIT 30.3 % (36.0-46.0); IMMATURE GRANULOCYTE (%) 3.7 % (0.0-0.7); IMMATURE GRANULOCYTE COUNT 0.4 K/uL; INSTRUMENT ABS NEUTROPHIL CT 6.1 K/uL; LYMPHOCYTE COUNT 1.6 K/uL (1.0-2.8); MCH 29.5 PG (29.0-34.0); MCV 92.1 FL (83-99); MONOCYTE (%) 14.1 % (3-12); MONOCYTE COUNT 1.3 K/uL (0-0.8); NEUTROPHIL (%) 64.2 % (45-76); NEUTROPHIL COUNT 6.1 K/uL (1.8-6.4); NRBC (%) 0.5 /100 WBC (0-0); RBC DIS.WIDTH-CV 14.8 % (11.8-14.6); RED BLOOD COUNT 3.29 M/uL (3.80-5.20); WHITE BLOOD COUNT 9.5 K/uL (4.1-10.2)
[2016-08-08 06:26] LABS: PLATELET COUNT 175 K/uL (156-360)
[2016-08-08 07:00] LABS: ANION GAP 9 MEQ/L (2-14); CHLORIDE 109 MEQ/L (99-109); GFR ESTIMATE (CALCULATED) 39 mL/min/; GLUCOSE 83 mg/dL (70-99); MAGNESIUM 1.2 mg/dl (1.3-2.7); SAMPLE HEMOLYSIS CHECK 0; SAMPLE ICTERIC CHECK 0; SAMPLE LIPEMIA CHECK 0; SODIUM 144 MEQ/L (136-147); UREA NITROGEN (BUN) 15 mg/dL (9-23)
[2016-08-08 10:41] LABS: POINT-OF-CARE METER ID UU14162636
[2016-08-08 16:11] LABS: POINT-OF-CARE METER ID UU14174216
[2016-08-08 21:22] LABS: POINT-OF-CARE METER ID UU13113698
[2016-08-09 00:50] LABS: HEMATOCRIT 30.9 % (36.0-46.0); MCV 92.8 FL (83-99)
[2016-08-09 04:10] VITALS: BP 128/73
[2016-08-09 07:09] LABS: ANION GAP 7 MEQ/L (2-14); CHLORIDE 107 MEQ/L (99-109); GFR ESTIMATE (CALCULATED) 42 mL/min/; GLUCOSE 86 mg/dL (70-99); MAGNESIUM 1.2 mg/dl (1.3-2.7); SAMPLE HEMOLYSIS CHECK 0; SAMPLE ICTERIC CHECK 0; SAMPLE LIPEMIA CHECK 0; SODIUM 141 MEQ/L (136-147); UREA NITROGEN (BUN) 12 mg/dL (9-23)
[2016-08-09 07:15] LABS: EOSINOPHIL (%) 1.7 % (0-5); EOSINOPHIL COUNT 0.2 K/uL (0-0.3); HEMATOCRIT 30.4 % (36.0-46.0); IMMATURE GRANULOCYTE (%) 1.9 % (0.0-0.7); IMMATURE GRANULOCYTE COUNT 0.2 K/uL; INSTRUMENT ABS NEUTROPHIL CT 5.8 K/uL; LYMPHOCYTE COUNT 1.7 K/uL (1.0-2.8); MCH 30.4 PG (29.0-34.0); MCHC 32.2 G/DL (30.0-36.0); MCV 94.4 FL (83-99); MEAN PLAT.VOLUME 10.3 uM^3 (9.5-12.4); MONOCYTE (%) 12.3 % (3-12); MONOCYTE COUNT 1.1 K/uL (0-0.8); NEUTROPHIL COUNT 5.8 K/uL (1.8-6.4); NRBC (%) 0.2 /100 WBC (0-0); PLATELET COUNT 177 K/uL (156-360); RBC DIS.WIDTH-CV 14.7 % (11.8-14.6); RBC DIS.WIDTH-SD 50.9 % (39-53); RED BLOOD COUNT 3.22 M/uL (3.80-5.20); WHITE BLOOD COUNT 8.9 K/uL (4.1-10.2)
[2016-08-09 07:37] LABS: POINT-OF-CARE METER ID UU13113698
[2016-08-09 08:44] VITALS: BP 132/74
[2016-08-09 11:50] VITALS: BP 129/81
[2016-08-09 15:48] VITALS: BP 125/67
[2016-08-09 17:58] LABS: HEMATOCRIT 33.7 % (36.0-46.0); MCV 94.4 FL (83-99)
[2016-08-09 19:12] VITALS: BP 134/73
[2016-08-09 23:08] VITALS: BP 110/68
[2016-08-10 03:02] VITALS: BP 140/91
[2016-08-10 07:22] LABS: EOSINOPHIL (%) 1.2 % (0-5); EOSINOPHIL COUNT 0.1 K/uL (0-0.3); HEMATOCRIT 31.7 % (36.0-46.0); IMMATURE GRANULOCYTE COUNT 0.1 K/uL; INSTRUMENT ABS NEUTROPHIL CT 6.5 K/uL; LYMPHOCYTE COUNT 1.4 K/uL (1.0-2.8); MCH 29.5 PG (29.0-34.0); MCHC 30.6 G/DL (30.0-36.0); MCV 96.4 FL (83-99); MEAN PLAT.VOLUME 10.1 uM^3 (9.5-12.4); MONOCYTE (%) 11.7 % (3-12); MONOCYTE COUNT 1.1 K/uL (0-0.8); NEUTROPHIL (%) 70.9 % (45-76); NEUTROPHIL COUNT 6.5 K/uL (1.8-6.4); NRBC (%) 0.2 /100 WBC (0-0); PLATELET COUNT 185 K/uL (156-360); RBC DIS.WIDTH-CV 14.6 % (11.8-14.6); RBC DIS.WIDTH-SD 50.8 % (39-53); RED BLOOD COUNT 3.29 M/uL (3.80-5.20); WHITE BLOOD COUNT 9.1 K/uL (4.1-10.2)
[2016-08-10 07:23] VITALS: BP 118/77
[2016-08-10 07:43] LABS: ANION GAP 9 MEQ/L (2-14); CHLORIDE 106 MEQ/L (99-109); GFR ESTIMATE (CALCULATED) 39 mL/min/; GLUCOSE 92 mg/dL (70-99); MAGNESIUM 1.3 mg/dl (1.3-2.7); POTASSIUM 4.6 MEQ/L (3.7-5.4); SAMPLE HEMOLYSIS CHECK 0; SAMPLE ICTERIC CHECK 0; SAMPLE LIPEMIA CHECK 0; SODIUM 140 MEQ/L (136-147); UREA NITROGEN (BUN) 15 mg/dL (9-23)
[2016-08-10 12:26] VITALS: BP 127/71
[2016-08-10 16:13] VITALS: BP 135/81
[2016-08-10 19:20] VITALS: BP 136/89
[2016-08-10 23:58] VITALS: BP 141/92
[2016-08-11 04:48] VITALS: BP 121/77
[2016-08-11 07:25] LABS: EOSINOPHIL (%) 0.3 % (0-5); HEMATOCRIT 32.5 % (36.0-46.0); IMMATURE GRANULOCYTE (%) 1.1 % (0.0-0.7); IMMATURE GRANULOCYTE COUNT 0.1 K/uL; INSTRUMENT ABS NEUTROPHIL CT 7.7 K/uL; LYMPHOCYTE COUNT 1.2 K/uL (1.0-2.8); MCH 30.2 PG (29.0-34.0); MCHC 31.1 G/DL (30.0-36.0); MCV 97.3 FL (83-99); MEAN PLAT.VOLUME 9.9 uM^3 (9.5-12.4); MONOCYTE (%) 11.2 % (3-12); MONOCYTE COUNT 1.1 K/uL (0-0.8); NEUTROPHIL (%) 75.9 % (45-76); NEUTROPHIL COUNT 7.7 K/uL (1.8-6.4); NRBC (%) 0.3 /100 WBC (0-0); PLATELET COUNT 202 K/uL (156-360); RBC DIS.WIDTH-CV 14.9 % (11.8-14.6); RBC DIS.WIDTH-SD 50.7 % (39-53); RED BLOOD COUNT 3.34 M/uL (3.80-5.20); WHITE BLOOD COUNT 10.2 K/uL (4.1-10.2)
[2016-08-11 08:08] LABS: ANION GAP 9 MEQ/L (2-14); CHLORIDE 104 MEQ/L (99-109); GFR ESTIMATE (CALCULATED) 42 mL/min/; GLUCOSE 93 mg/dL (70-99); POTASSIUM 4.6 MEQ/L (3.7-5.4); SAMPLE HEMOLYSIS CHECK 0; SAMPLE ICTERIC CHECK 0; SAMPLE LIPEMIA CHECK 0; SODIUM 139 MEQ/L (136-147); UREA NITROGEN (BUN) 20 mg/dL (9-23)
[2016-08-11 08:16] LABS: MAGNESIUM 1.5 mg/dl (1.3-2.7)
[2016-08-11 09:09] VITALS: BP 153/76
[2016-08-11 11:22] VITALS: BP 117/72
[2016-08-11 15:45] VITALS: BP 127/77
[2016-08-11 21:40] VITALS: BP 149/89
[2016-08-11 23:00] VITALS: BP 146/80
[2016-08-12 03:58] VITALS: BP 112/78
[2016-08-12 07:30] LABS: EOSINOPHIL (%) 0.6 % (0-5); EOSINOPHIL COUNT 0.1 K/uL (0-0.3); HEMATOCRIT 31.9 % (36.0-46.0); IMMATURE GRANULOCYTE (%) 1.8 % (0.0-0.7); IMMATURE GRANULOCYTE COUNT 0.2 K/uL; INSTRUMENT ABS NEUTROPHIL CT 7.8 K/uL; LYMPHOCYTE COUNT 1.4 K/uL (1.0-2.8); MCH 29.8 PG (29.0-34.0); MCHC 30.7 G/DL (30.0-36.0); MEAN PLAT.VOLUME 9.8 uM^3 (9.5-12.4); MONOCYTE (%) 11.7 % (3-12); MONOCYTE COUNT 1.3 K/uL (0-0.8); NEUTROPHIL COUNT 7.8 K/uL (1.8-6.4); PLATELET COUNT 223 K/uL (156-360); RBC DIS.WIDTH-CV 15.1 % (11.8-14.6); RBC DIS.WIDTH-SD 50.7 % (39-53); RED BLOOD COUNT 3.29 M/uL (3.80-5.20); WHITE BLOOD COUNT 10.7 K/uL (4.1-10.2)
[2016-08-12 07:52] LABS: ANION GAP 10 MEQ/L (2-14); CHLORIDE 104 MEQ/L (99-109); GFR ESTIMATE (CALCULATED) 39 mL/min/; GLUCOSE 93 mg/dL (70-99); MAGNESIUM 1.5 mg/dl (1.3-2.7); POTASSIUM 4.5 MEQ/L (3.7-5.4); SAMPLE HEMOLYSIS CHECK 0; SAMPLE ICTERIC CHECK 0; SAMPLE LIPEMIA CHECK 0; SODIUM 140 MEQ/L (136-147); UREA NITROGEN (BUN) 23 mg/dL (9-23)
[2016-08-12 08:20] VITALS: BP 120/78
[2016-08-12 11:28] VITALS: BP 117/74
[2016-08-12 19:59] VITALS: BP 121/78
[2016-08-12 23:34] VITALS: BP 120/71
[2016-08-13 03:43] VITALS: BP 100/60
[2016-08-13 07:09] LABS: EOSINOPHIL (%) 1.7 % (0-5); EOSINOPHIL COUNT 0.1 K/uL (0-0.3); HEMATOCRIT 35.3 % (36.0-46.0); IMMATURE GRANULOCYTE (%) 3.5 % (0.0-0.7); IMMATURE GRANULOCYTE COUNT 0.3 K/uL; INSTRUMENT ABS NEUTROPHIL CT 5.5 K/uL; LYMPHOCYTE COUNT 1.4 K/uL (1.0-2.8); MCH 29.4 PG (29.0-34.0); MCV 98.1 FL (83-99); MEAN PLAT.VOLUME 9.9 uM^3 (9.5-12.4); MONOCYTE (%) 12.6 % (3-12); MONOCYTE COUNT 1.1 K/uL (0-0.8); NEUTROPHIL (%) 64.8 % (45-76); NEUTROPHIL COUNT 5.5 K/uL (1.8-6.4); NRBC (%) 0.4 /100 WBC (0-0); PLATELET COUNT 230 K/uL (156-360); RBC DIS.WIDTH-CV 15.4 % (11.8-14.6); RBC DIS.WIDTH-SD 52.8 % (39-53); WHITE BLOOD COUNT 8.4 K/uL (4.1-10.2)
[2016-08-13 07:25] LABS: ANION GAP 9 MEQ/L (2-14); CHLORIDE 105 MEQ/L (99-109); GFR ESTIMATE (CALCULATED) 33 mL/min/; GLUCOSE 86 mg/dL (70-99); MAGNESIUM 1.5 mg/dl (1.3-2.7); POTASSIUM 4.8 MEQ/L (3.7-5.4); SAMPLE HEMOLYSIS CHECK 0; SAMPLE ICTERIC CHECK 0; SAMPLE LIPEMIA CHECK 0; SODIUM 140 MEQ/L (136-147); UREA NITROGEN (BUN) 25 mg/dL (9-23)
[2016-08-13 07:37] VITALS: BP 118/69
[2016-08-13 11:03] VITALS: BP 106/64
[2016-08-13 15:11] VITALS: BP 113/67
[2016-08-13 19:34] VITALS: BP 99/58
[2016-08-13 22:00] VITALS: BP 115/70
[2016-08-14 00:35] VITALS: BP 110/56
[2016-08-14 03:41] VITALS: BP 112/58
[2016-08-14 07:16] VITALS: BP 124/66
[2016-08-14 07:33] LABS: EOSINOPHIL (%) 2.1 % (0-5); EOSINOPHIL COUNT 0.2 K/uL (0-0.3); HEMATOCRIT 33.5 % (36.0-46.0); IMMATURE GRANULOCYTE (%) 3.2 % (0.0-0.7); IMMATURE GRANULOCYTE COUNT 0.2 K/uL; INSTRUMENT ABS NEUTROPHIL CT 4.9 K/uL; MCH 29.7 PG (29.0-34.0); MCHC 30.4 G/DL (30.0-36.0); MCV 97.7 FL (83-99); MEAN PLAT.VOLUME 9.8 uM^3 (9.5-12.4); MONOCYTE (%) 11.7 % (3-12); MONOCYTE COUNT 0.8 K/uL (0-0.8); NEUTROPHIL (%) 68.1 % (45-76); NEUTROPHIL COUNT 4.9 K/uL (1.8-6.4); PLATELET COUNT 214 K/uL (156-360); RBC DIS.WIDTH-CV 15.6 % (11.8-14.6); RBC DIS.WIDTH-SD 51.8 % (39-53); RED BLOOD COUNT 3.43 M/uL (3.80-5.20); WHITE BLOOD COUNT 7.2 K/uL (4.1-10.2)
[2016-08-14 08:08] LABS: ANION GAP 10 MEQ/L (2-14); CHLORIDE 107 MEQ/L (99-109); GFR ESTIMATE (CALCULATED) 36 mL/min/; GLUCOSE 96 mg/dL (70-99); MAGNESIUM 1.4 mg/dl (1.3-2.7); POTASSIUM 4.7 MEQ/L (3.7-5.4); SAMPLE HEMOLYSIS CHECK 0; SAMPLE ICTERIC CHECK 0; SAMPLE LIPEMIA CHECK 0; SODIUM 142 MEQ/L (136-147); UREA NITROGEN (BUN) 22 mg/dL (9-23)
[2016-08-14 15:07] VITALS: BP 119/63
[2016-08-14 19:56] VITALS: BP 133/66
[2016-08-15 00:03] VITALS: BP 118/70
[2016-08-15 03:47] VITALS: BP 132/73
[2016-08-15 07:38] LABS: EOSINOPHIL COUNT 0.1 K/uL (0-0.3); IMMATURE GRANULOCYTE (%) 1.6 % (0.0-0.7); IMMATURE GRANULOCYTE COUNT 0.1 K/uL; INSTRUMENT ABS NEUTROPHIL CT 4.8 K/uL; LYMPHOCYTE COUNT 1.1 K/uL (1.0-2.8); MCH 29.9 PG (29.0-34.0); MCHC 30.9 G/DL (30.0-36.0); MCV 96.8 FL (83-99); MEAN PLAT.VOLUME 9.6 uM^3 (9.5-12.4); MONOCYTE (%) 11.2 % (3-12); MONOCYTE COUNT 0.8 K/uL (0-0.8); NEUTROPHIL (%) 69.2 % (45-76); NEUTROPHIL COUNT 4.8 K/uL (1.8-6.4); PLATELET COUNT 210 K/uL (156-360); RBC DIS.WIDTH-CV 15.8 % (11.8-14.6); RED BLOOD COUNT 3.41 M/uL (3.80-5.20)
[2016-08-15 08:04] LABS: ANION GAP 7 MEQ/L (2-14); CHLORIDE 106 MEQ/L (99-109); GFR ESTIMATE (CALCULATED) 42 mL/min/; GLUCOSE 104 mg/dL (70-99); MAGNESIUM 1.3 mg/dl (1.3-2.7); POTASSIUM 4.2 MEQ/L (3.7-5.4); SAMPLE HEMOLYSIS CHECK 0; SAMPLE ICTERIC CHECK 0; SAMPLE LIPEMIA CHECK 0; SODIUM 141 MEQ/L (136-147); UREA NITROGEN (BUN) 19 mg/dL (9-23)
[2016-08-15 08:05] VITALS: BP 126/68
[2016-08-15 12:05] VITALS: BP 125/66
[2016-08-15 16:05] VITALS: BP 124/62
[2016-08-15 23:55] VITALS: BP 121/74
[2016-08-16 03:53] VITALS: BP 132/74
[2016-08-16 07:26] LABS: EOSINOPHIL (%) 2.5 % (0-5); EOSINOPHIL COUNT 0.2 K/uL (0-0.3); HEMATOCRIT 32.5 % (36.0-46.0); IMMATURE GRANULOCYTE (%) 1.5 % (0.0-0.7); IMMATURE GRANULOCYTE COUNT 0.1 K/uL; INSTRUMENT ABS NEUTROPHIL CT 4.5 K/uL; MCH 29.9 PG (29.0-34.0); MCHC 30.8 G/DL (30.0-36.0); MEAN PLAT.VOLUME 9.5 uM^3 (9.5-12.4); MONOCYTE (%) 11.6 % (3-12); MONOCYTE COUNT 0.8 K/uL (0-0.8); NEUTROPHIL (%) 68.3 % (45-76); NEUTROPHIL COUNT 4.5 K/uL (1.8-6.4); PLATELET COUNT 206 K/uL (156-360); RBC DIS.WIDTH-CV 15.9 % (11.8-14.6); RBC DIS.WIDTH-SD 53.8 % (39-53); RED BLOOD COUNT 3.35 M/uL (3.80-5.20); WHITE BLOOD COUNT 6.5 K/uL (4.1-10.2)
[2016-08-16 07:46] LABS: ANION GAP 8 MEQ/L (2-14); CHLORIDE 106 MEQ/L (99-109); GFR ESTIMATE (CALCULATED) 36 mL/min/; GLUCOSE 102 mg/dL (70-99); MAGNESIUM 1.3 mg/dl (1.3-2.7); POTASSIUM 4.3 MEQ/L (3.7-5.4); SAMPLE HEMOLYSIS CHECK 0; SAMPLE ICTERIC CHECK 0; SAMPLE LIPEMIA CHECK 0; SODIUM 142 MEQ/L (136-147); UREA NITROGEN (BUN) 16 mg/dL (9-23)
[2016-08-16 07:54] VITALS: BP 126/72
[2016-08-16 12:17] VITALS: BP 122/68
[2016-08-16 19:32] VITALS: BP 113/68
[2016-08-17] VITALS (7 sets, daily range): BP systolic 119–133; BP diastolic 58–76
[2016-08-17 07:06] LABS: EOSINOPHIL (%) 2.4 % (0-5); EOSINOPHIL COUNT 0.2 K/uL (0-0.3); HEMATOCRIT 32.8 % (36.0-46.0); IMMATURE GRANULOCYTE (%) 0.9 % (0.0-0.7); IMMATURE GRANULOCYTE COUNT 0.1 K/uL; INSTRUMENT ABS NEUTROPHIL CT 4.4 K/uL; MCH 30.1 PG (29.0-34.0); MCHC 30.8 G/DL (30.0-36.0); MCV 97.9 FL (83-99); MEAN PLAT.VOLUME 9.7 uM^3 (9.5-12.4); MONOCYTE COUNT 0.9 K/uL (0-0.8); NEUTROPHIL (%) 66.4 % (45-76); NEUTROPHIL COUNT 4.4 K/uL (1.8-6.4); PLATELET COUNT 180 K/uL (156-360); RBC DIS.WIDTH-CV 16.3 % (11.8-14.6); RBC DIS.WIDTH-SD 56.7 % (39-53); RED BLOOD COUNT 3.35 M/uL (3.80-5.20); WHITE BLOOD COUNT 6.6 K/uL (4.1-10.2)
[2016-08-17 07:27] LABS: ANION GAP 7 MEQ/L (2-14); CHLORIDE 106 MEQ/L (99-109); GFR ESTIMATE (CALCULATED) 36 mL/min/; GLUCOSE 106 mg/dL (70-99); MAGNESIUM 1.3 mg/dl (1.3-2.7); POTASSIUM 4.5 MEQ/L (3.7-5.4); SAMPLE HEMOLYSIS CHECK 0; SAMPLE ICTERIC CHECK 0; SAMPLE LIPEMIA CHECK 0; SODIUM 141 MEQ/L (136-147); UREA NITROGEN (BUN) 15 mg/dL (9-23)
[2016-08-18 07:32] LABS: EOSINOPHIL (%) 2.4 % (0-5); EOSINOPHIL COUNT 0.2 K/uL (0-0.3); HEMATOCRIT 35.1 % (36.0-46.0); IMMATURE GRANULOCYTE (%) 0.7 % (0.0-0.7); IMMATURE GRANULOCYTE COUNT 0.1 K/uL; INSTRUMENT ABS NEUTROPHIL CT 5.5 K/uL; LYMPHOCYTE COUNT 0.9 K/uL (1.0-2.8); MCH 29.7 PG (29.0-34.0); MCHC 30.5 G/DL (30.0-36.0); MCV 97.5 FL (83-99); MEAN PLAT.VOLUME 9.6 uM^3 (9.5-12.4); MONOCYTE (%) 12.8 % (3-12); NEUTROPHIL (%) 72.5 % (45-76); NEUTROPHIL COUNT 5.5 K/uL (1.8-6.4); PLATELET COUNT 190 K/uL (156-360); RBC DIS.WIDTH-SD 55.4 % (39-53); WHITE BLOOD COUNT 7.6 K/uL (4.1-10.2)
[2016-08-18 07:53] VITALS: BP 118/79
[2016-08-18 07:58] LABS: ANION GAP 7 MEQ/L (2-14); CHLORIDE 104 MEQ/L (99-109); GFR ESTIMATE (CALCULATED) 36 mL/min/; GLUCOSE 103 mg/dL (70-99); MAGNESIUM 1.3 mg/dl (1.3-2.7); POTASSIUM 4.4 MEQ/L (3.7-5.4); SAMPLE HEMOLYSIS CHECK 0; SAMPLE ICTERIC CHECK 0; SAMPLE LIPEMIA CHECK 0; SODIUM 139 MEQ/L (136-147); UREA NITROGEN (BUN) 14 mg/dL (9-23)
[2016-08-18 11:29] VITALS: BP 121/65
[2016-08-18 15:36] VITALS: BP 110/69
[2016-08-18 20:39] VITALS: BP 114/64
[2016-08-19 00:09] VITALS: BP 121/81
[2016-08-19 04:13] VITALS: BP 115/70
[2016-08-19 06:44] LABS: EOSINOPHIL (%) 2.4 % (0-5); EOSINOPHIL COUNT 0.2 K/uL (0-0.3); HEMATOCRIT 33.6 % (36.0-46.0); IMMATURE GRANULOCYTE (%) 0.8 % (0.0-0.7); IMMATURE GRANULOCYTE COUNT 0.1 K/uL; INSTRUMENT ABS NEUTROPHIL CT 4.3 K/uL; LYMPHOCYTE COUNT 0.9 K/uL (1.0-2.8); MCH 29.5 PG (29.0-34.0); MCHC 30.4 G/DL (30.0-36.0); MCV 97.1 FL (83-99); MEAN PLAT.VOLUME 10.1 uM^3 (9.5-12.4); MONOCYTE (%) 13.2 % (3-12); MONOCYTE COUNT 0.8 K/uL (0-0.8); NEUTROPHIL (%) 69.2 % (45-76); NEUTROPHIL COUNT 4.3 K/uL (1.8-6.4); PLATELET COUNT 190 K/uL (156-360); RBC DIS.WIDTH-SD 55.6 % (39-53); RED BLOOD COUNT 3.46 M/uL (3.80-5.20); WHITE BLOOD COUNT 6.2 K/uL (4.1-10.2)
[2016-08-19 07:22] LABS: ANION GAP 7 MEQ/L (2-14); CHLORIDE 104 MEQ/L (99-109); GFR ESTIMATE (CALCULATED) 36 mL/min/; GLUCOSE 102 mg/dL (70-99); MAGNESIUM 1.2 mg/dl (1.3-2.7); POTASSIUM 4.2 MEQ/L (3.7-5.4); SAMPLE HEMOLYSIS CHECK 0; SAMPLE ICTERIC CHECK 0; SAMPLE LIPEMIA CHECK 0; SODIUM 140 MEQ/L (136-147); UREA NITROGEN (BUN) 14 mg/dL (9-23)
[2016-08-19] MEDS ORDERED: CLOTRIMAZOLE-BE15 GM TP (08:15)
[2016-08-19 12:58] VITALS: BP 111/74
== END 2016-08-19 16:40 | DRG 872 ==
LOC: EME 19:56 → EDOF 08-07 01:35 → 4EAST 08-07 01:35 → 4WEST 08-07 01:35 → 5SOUTH 08-07 01:35 → 4WEST 08-07 03:28 → 4EAST 08-08 11:37 → 5SOUTH 08-11 23:01
PROVIDERS: Emergency Medicine; Hospitalist; Internal Medicine; Internal Medicine Nephrology; Obstetrics & Gynecology; Student in an Organized Health Care Education/Training Program
DX: R57.1 Hypovolemic shock (principal); D62 Acute posthemorrhagic anemia; D68.32 Hemorrhagic disorder due to extrinsic circulating anticoagulants; T45.515A Adverse effect of anticoagulants, initial encounter; I48.1 Persistent atrial fibrillation; T80.89XA Other complications following infusion, transfusion and therapeutic injection, initial encounter; S30.1XXA Contusion of abdominal wall, initial encounter; I27.2 Other secondary pulmonary hypertension; N18.3 Chronic kidney disease, stage 3 (moderate); J44.9 Chronic obstructive pulmonary disease, unspecified; K21.9 Gastro-esophageal reflux disease without esophagitis; E66.01 Morbid (severe) obesity due to excess calories; Z68.43 Body mass index [BMI] 50.0-59.9, adult; G25.0 Essential tremor; I89.0 Lymphedema, not elsewhere classified; J45.909 Unspecified asthma, uncomplicated; L90.5 Scar conditions and fibrosis of skin; L30.4 Erythema intertrigo; Z86.711 Personal history of pulmonary embolism; Z94.5 Skin transplant status; Z87.828 Personal history of other (healed) physical injury and trauma; Z75.1 Person awaiting admission to adequate facility elsewhere
CPT/HCPCS: 71010; 74176; 74177; 80048; 80053; 81003; 82948; 83605; 83735; 84100; 84484; 85014; 85018; 85025; 85027; 85610; 85730; 86850; 86900; 86901; 86920; 87502; 87641; 93005; 94640; 94640 76; 99202; J0696; J1815; J2405; J2720; J2920; J7030; J7050; J7120; P9016; P9017; S0028

== ENCOUNTER 2016-11-19 15:32 | Emergency (ER) | payer OTHER, BC ==
[~2016-11-19] VITALS: Ht 157.5 cm; Wt 128.3 kg
[~2016-11-19 15:32] MED LIST changes: +ACETAMINOPHEN325 M1 PO; +ADVAIR HFA120 INHAL1 IH; +CLOTRIMAZOLE-BE15 GM TP; +CO Q-10-VIT E-1 EACH PO; +COUMADIN5 MG PO
[2016-11-19] MEDS ORDERED: CARDIZEM60 MG PO (15:41)
[2016-11-19] MEDS ORDERED: PRIMIDONE50 MG PO (15:42)
[2016-11-19] MEDS ORDERED: CITALOPRAM HBR20 MG PO (15:43)
[2016-11-19] MEDS ORDERED: SPIRIVA1 INHALATI IH (15:44)
[2016-11-19] MEDS ORDERED: MGO400 MG PO (15:44)
[2016-11-19] MEDS ORDERED: FISH OIL 500 M1 EAC4 PO (15:45)
[2016-11-19] MEDS ORDERED: MONTELUKAST SOD10 MG PO (15:45)
[2016-11-19] MEDS ORDERED: METOPROLOL TART75 MG PO (15:45)
[2016-11-19] MEDS ORDERED: VENTOLIN HFA18 GM IH (15:47)
[2016-11-19] MEDS ORDERED: ADVAIR HFA120 INHAL1 IH (15:48)
[2016-11-19] MEDS ORDERED: VITAMIN D2000 UNI1 PO (15:48)
[2016-11-19] MEDS ORDERED: OMEPRAZOLE20 M2 PO (15:49)
[2016-11-19] MEDS ORDERED: FERROUS SULFAT325 MG PO (15:49)
[2016-11-19] MEDS ORDERED: DAILY VALUE1 EACH PO (15:49)
[2016-11-19] MEDS ORDERED: ASPIR 8181 M1 PO (15:49)
[2016-11-19] MEDS ORDERED: CYANOCOBAL1000 MCG/2 IM (15:50)
[2016-11-19 18:24] LABS: HEMATOCRIT 41.2 % (36.0-46.0); MCH 28.7 PG (29.0-34.0); MCHC 31.3 G/DL (30.0-36.0); MCV 91.8 FL (83-99); MEAN PLAT.VOLUME 9.7 uM^3 (9.5-12.4); PLATELET COUNT 211 K/uL (156-360); RBC DIS.WIDTH-CV 15.5 % (11.8-14.6); RBC DIS.WIDTH-SD 52.5 % (39-53); RED BLOOD COUNT 4.49 M/uL (3.80-5.20); WHITE BLOOD COUNT 5.3 K/uL (4.1-10.2)
[2016-11-19 18:34] LABS: CHLORIDE 105 mEq/L (99-109); POTASSIUM 4.7 mEq/L (3.7-5.4); SODIUM 142 mEq/L (136-147)
[2016-11-19 18:35] LABS: GLUCOSE 87 mg/dL (70-99)
[2016-11-19 18:37] LABS: ANION GAP 15 MEQ/L (2-14)
[2016-11-19 18:39] LABS: GFR ESTIMATE (CALCULATED) 29 mL/min/
[2016-11-19 18:40] LABS: UREA NITROGEN (BUN) 27 mg/dL (9-23)
[2016-11-19 22:15] VITALS: BP 148/102
== END 2016-11-19 22:35 | disposition home or self-care (01) ==
LOC: EME 15:32
PROVIDERS: Emergency Medicine
DX: R26.2 Difficulty in walking, not elsewhere classified (principal); R53.83 Other fatigue; I48.91 Unspecified atrial fibrillation; I10 Essential (primary) hypertension; J45.909 Unspecified asthma, uncomplicated; Z79.82 Long term (current) use of aspirin; Z87.891 Personal history of nicotine dependence
CPT/HCPCS: 80048; 81003; 85027; 99281; 99285

== ENCOUNTER 2017-01-26 13:46 | Emergency (ER) | payer OTHER, BC ==
[~2017-01-26] VITALS: Ht 154.9 cm; Wt 139.8 kg
[~2017-01-26 13:46] MED LIST changes: +ASPIR 8181 M1 PO; +CARDIZEM60 MG PO; +CITALOPRAM HBR20 MG PO; +DAILY VALUE1 EACH PO; +FERROUS SULFAT325 MG PO; +FISH OIL 500 M1 EAC4 PO; +METOPROLOL TART75 MG PO; +MGO400 MG PO; +OMEPRAZOLE20 M2 PO; +VITAMIN D2000 UNI1 PO
[2017-01-26 14:49] LABS: MCH 30.3 PG (29.0-34.0); MCHC 31.9 G/DL (30.0-36.0); MCV 94.9 FL (83-99); MEAN PLAT.VOLUME 9.7 uM^3 (9.5-12.4); PLATELET COUNT 216 K/uL (156-360); RBC DIS.WIDTH-CV 16.3 % (11.8-14.6); RBC DIS.WIDTH-SD 57.2 % (39-53); WHITE BLOOD COUNT 5.1 K/uL (4.1-10.2)
[2017-01-26 14:55] LABS: CHLORIDE 109 mEq/L (99-109); SODIUM 144 mEq/L (136-147)
[2017-01-26 14:57] LABS: GLUCOSE 85 mg/dL (70-99)
[2017-01-26 14:59] LABS: ANION GAP 12 MEQ/L (2-14)
[2017-01-26 15:01] LABS: GFR ESTIMATE (CALCULATED) 36 mL/min/
[2017-01-26 15:02] LABS: UREA NITROGEN (BUN) 18 mg/dL (9-23)
[2017-01-26 15:08] LABS: TROP-I INTERPRETATION NEGATIVE; TROPONIN-I 0.02 ng/mL (0.0-0.30)
[2017-01-26] MEDS ORDERED: LASIX40 MG PO (16:18)
[2017-01-26 19:52] VITALS: BP 123/75
== END 2017-01-26 19:53 | disposition home or self-care (01) ==
LOC: EME 13:46
PROVIDERS: Emergency Medicine
PROC: 0T9B70Z Drainage of Bladder with Drainage Device, Via Natural or Artificial Opening (ICD-10-PCS; principal; 2017-01-26)
DX: R60.1 Generalized edema (principal); I12.9 Hypertensive chronic kidney disease with stage 1 through stage 4 chronic kidney disease, or unspecified chronic kidney disease; N18.9 Chronic kidney disease, unspecified; J45.909 Unspecified asthma, uncomplicated; Z88.5 Allergy status to narcotic agent; Z88.8 Allergy status to other drugs, medicaments and biological substances; Z87.891 Personal history of nicotine dependence
CPT/HCPCS: 71010; 80048; 83880; 84484; 85027; 99281; 99285; J1940

== ENCOUNTER 2017-02-12 15:38 | Inpatient (IN) | payer OTHER, BC ==
[~2017-02-12] VITALS: Ht 154.9 cm; Wt 117.2 kg
[~2017-02-12 15:38] MED LIST changes: +CARDIZEM CD240 MG PO; -CARDIZEM60 MG PO; +LASIX40 MG PO; -METOPROLOL TART75 MG PO; +TOPROL XL25 MG PO; -VITAMIN D2000 UNI1 PO
[2017-02-12] MEDS ORDERED: CALCITRIOL0.25 MCG PO (15:51)
[2017-02-12] MEDS ORDERED: AMLODIPINE BES2.5 MG PO (15:51)
[2017-02-12 16:05] LABS: HEMATOCRIT 36.3 % (36.0-46.0); MCH 30.7 PG (29.0-34.0); MCHC 33.6 G/DL (30.0-36.0); MCV 91.2 FL (83-99); PLATELET COUNT 257 K/uL (156-360); RBC DIS.WIDTH-CV 13.6 % (11.8-14.6); RBC DIS.WIDTH-SD 46.4 % (39-53); RED BLOOD COUNT 3.98 M/uL (3.80-5.20)
[2017-02-12 16:14] LABS: CHLORIDE 99 mEq/L (99-109); POTASSIUM 3.2 mEq/L (3.7-5.4); SODIUM 140 mEq/L (136-147)
[2017-02-12 16:16] LABS: GLUCOSE 89 mg/dL (70-99)
[2017-02-12 16:17] LABS: ANION GAP 17 MEQ/L (2-14)
[2017-02-12 16:18] LABS: TOTAL BILIRUBIN 0.6 mg/dL (0.0-1.0)
[2017-02-12 16:19] LABS: ALKALINE PHOSPHATASE 83 IU/L (3-129)
[2017-02-12 16:20] LABS: GFR ESTIMATE (CALCULATED) 27 mL/min/
[2017-02-12 16:21] LABS: UREA NITROGEN (BUN) 27 mg/dL (9-23)
[2017-02-12 16:57] LABS: MAGNESIUM 0.7 mg/dL (1.3-2.7)
[2017-02-12] MEDS ORDERED: FUROSEMIDE40 MG PO (17:50)
[2017-02-12] MEDS ORDERED: SPIRIVA RESPIMAT4 GM IH (17:51)
[2017-02-12 17:52] LABS: ADD MIUA? YES; BILIRUBIN NEGATIVE; BLOOD SMALL; COLOR YELLOW ((YELLOW)); GLUCOSE (STRIP) NEGATIVE; KETONES NEGATIVE; LEUKOCYTES LARGE; NITRITE POSITIVE; PROTEIN (STRIP) NEGATIVE; UROBILINOGEN 0.2 MG/DL (0.2-1.0)
[2017-02-12 17:59] LABS: BACTERIA RARE /HPF; EPITHELIAL CELLS 1+ /HPF; MUCUS TRACE /LPF; UCUL ADDED? YES; WHITE BLOOD CELLS TNTC /HPF (0-5)
[2017-02-12 21:53] VITALS: BP 106/67
[2017-02-12 23:16] LABS: POTASSIUM 3.8 mEq/L (3.7-5.4)
[2017-02-12 23:17] LABS: MAGNESIUM 1.2 mg/dL (1.3-2.7)
[2017-02-13 00:10] VITALS: BP 106/66
[2017-02-13 02:52] LABS: IRON 53 MCG/DL (35-150)
[2017-02-13 04:34] VITALS: BP 111/65
[2017-02-13 05:53] LABS: HEMATOCRIT 33.7 % (36.0-46.0); MCH 30.9 PG (29.0-34.0); MCHC 32.6 G/DL (30.0-36.0); MCV 94.7 FL (83-99); MEAN PLAT.VOLUME 9.5 uM^3 (9.5-12.4); PLATELET COUNT 221 K/uL (156-360); RBC DIS.WIDTH-SD 48.8 % (39-53); RED BLOOD COUNT 3.56 M/uL (3.80-5.20)
[2017-02-13 06:44] LABS: ANION GAP 11 MEQ/L (2-14); CHLORIDE 100 MEQ/L (99-109); GFR ESTIMATE (CALCULATED) 26 mL/min/; GLUCOSE 98 mg/dL (70-99); POTASSIUM 3.7 MEQ/L (3.7-5.4); SAMPLE HEMOLYSIS CHECK 0; SAMPLE ICTERIC CHECK 0; SAMPLE LIPEMIA CHECK 0; SODIUM 140 MEQ/L (136-147); UREA NITROGEN (BUN) 27 mg/dL (9-23)
[2017-02-13 07:31] LABS: INTACT PARATHYROID HORMONE 277 pg/mL (10-69)
[2017-02-13 09:34] VITALS: BP 117/74
[2017-02-13 10:04] LABS: MAGNESIUM 1.3 mg/dl (1.3-2.7)
[2017-02-13 12:39] VITALS: BP 117/66
[2017-02-13 20:00] VITALS: BP 126/82
[2017-02-14] VITALS: BP 118/72
[2017-02-14 04:00] VITALS: BP 98/60
[2017-02-14 07:05] LABS: ANION GAP 10 MEQ/L (2-14); CHLORIDE 102 MEQ/L (99-109); GFR ESTIMATE (CALCULATED) 27 mL/min/; GLUCOSE 89 mg/dL (70-99); POTASSIUM 4.2 MEQ/L (3.7-5.4); SAMPLE HEMOLYSIS CHECK 0; SAMPLE ICTERIC CHECK 0; SAMPLE LIPEMIA CHECK 0; SODIUM 140 MEQ/L (136-147); UREA NITROGEN (BUN) 29 mg/dL (9-23)
[2017-02-14 07:13] LABS: MAGNESIUM 1.7 mg/dl (1.3-2.7)
[2017-02-14 07:45] VITALS: BP 106/72
[2017-02-14 16:04] VITALS: BP 101/62
[2017-02-14 19:35] VITALS: BP 121/80
[2017-02-15 00:10] VITALS: BP 108/63
[2017-02-15 07:40] LABS: ANION GAP 11 MEQ/L (2-14); CHLORIDE 104 MEQ/L (99-109); GFR ESTIMATE (CALCULATED) 31 mL/min/; GLUCOSE 82 mg/dL (70-99); MAGNESIUM 1.7 mg/dl (1.3-2.7); SAMPLE HEMOLYSIS CHECK 0; SAMPLE ICTERIC CHECK 0; SAMPLE LIPEMIA CHECK 0; SODIUM 141 MEQ/L (136-147); UREA NITROGEN (BUN) 31 mg/dL (9-23)
[2017-02-15 07:42] LABS: POTASSIUM 5.4 MEQ/L (3.7-5.4)
[2017-02-15 08:17] VITALS: BP 110/74
[2017-02-15 11:32] VITALS: BP 107/57
[2017-02-15 15:58] VITALS: BP 109/63
[2017-02-15 19:25] VITALS: BP 123/72
[2017-02-16 01:02] VITALS: BP 114/72
[2017-02-16 04:44] VITALS: BP 118/67
[2017-02-16 05:57] LABS: ALKALINE PHOSPHATASE 74 IU/L (3-129); ANION GAP 11 MEQ/L (2-14); CHLORIDE 104 MEQ/L (99-109); GFR ESTIMATE (CALCULATED) 29 mL/min/; GLUCOSE 102 mg/dL (70-99); POTASSIUM 5.3 MEQ/L (3.7-5.4); SAMPLE HEMOLYSIS CHECK 0; SAMPLE ICTERIC CHECK 0; SAMPLE LIPEMIA CHECK 0; SODIUM 140 MEQ/L (136-147); TOTAL BILIRUBIN 0.6 MG/DL (0.0-1.0); UREA NITROGEN (BUN) 33 mg/dL (9-23)
[2017-02-16 09:30] VITALS: BP 150/97
[2017-02-16 11:43] VITALS: BP 108/64
[2017-02-16] MEDS ORDERED: FAMOTIDINE20 MG PO (14:58)
[2017-02-16] MEDS ORDERED: CALCITRIOL0.25 MCG PO (14:58)
[2017-02-16] MEDS ORDERED: PANTOPRAZOLE SO40 MG PO (14:58)
[2017-02-16] MEDS ORDERED: ASPIR-LOW81 MG PO (14:58)
[2017-02-16] MEDS ORDERED: Tums,OsCal PO ×2 (14:58)
[2017-02-16] MEDS ORDERED: MONTELUKAST SOD10 MG PO (14:58)
[2017-02-16] MEDS ORDERED: PRIMIDONE50 MG PO (14:58)
[2017-02-16] MEDS ORDERED: ADVAIR HFA120 INHAL1 IH (14:58)
[2017-02-16] MEDS ORDERED: FUROSEMIDE40 MG PO (14:58)
[2017-02-16] MEDS ORDERED: SPIRIVA RESPIMAT4 GM IH (14:58)
[2017-02-16] MEDS ORDERED: CITALOPRAM HBR20 MG PO (14:58)
[2017-02-16] MEDS ORDERED: METOPROLOL SUCC25 MG PO (14:58)
[2017-02-16] MEDS ORDERED: MAG-OXIDE400 MG PO (14:58)
[2017-02-16] MEDS ORDERED: VITAMIN D31000 UNI2 PO (14:58)
[2017-02-16] MEDS ORDERED: CARDIZEM CD120 M1 PO (15:01)
[2017-02-16 15:45] VITALS: BP 126/72
== END 2017-02-16 19:09 | DRG 683 ==
LOC: EME → EDBD 15:38 → EDOF 20:20 → ENRESERV 20:21 → 5WEST 21:33 → ENRESERV 02-13 09:54 → CANRESERV 02-13 09:54 → 5WEST 02-16 19:09
PROVIDERS: Emergency Medicine; Hospitalist; Internal Medicine; Nurse Practitioner Adult Health
DX: N17.9 Acute kidney failure, unspecified (principal); E55.9 Vitamin D deficiency, unspecified; I13.0 Hypertensive heart and chronic kidney disease with heart failure and stage 1 through stage 4 chronic kidney disease, or unspecified chronic kidney disease; N18.4 Chronic kidney disease, stage 4 (severe); I50.32 Chronic diastolic (congestive) heart failure; R82.71 Bacteriuria; I48.2 Chronic atrial fibrillation; I27.2 Other secondary pulmonary hypertension; N25.81 Secondary hyperparathyroidism of renal origin; G25.0 Essential tremor; E66.01 Morbid (severe) obesity due to excess calories; J44.9 Chronic obstructive pulmonary disease, unspecified; I89.0 Lymphedema, not elsewhere classified; I87.2 Venous insufficiency (chronic) (peripheral); G43.909 Migraine, unspecified, not intractable, without status migrainosus; K91.2 Postsurgical malabsorption, not elsewhere classified; R20.2 Paresthesia of skin; R63.4 Abnormal weight loss; F32.9 Major depressive disorder, single episode, unspecified; F41.0 Panic disorder [episodic paroxysmal anxiety]; F42.9 Obsessive-compulsive disorder, unspecified; F60.9 Personality disorder, unspecified; K21.9 Gastro-esophageal reflux disease without esophagitis; M19.90 Unspecified osteoarthritis, unspecified site; Z68.42 Body mass index [BMI] 45.0-49.9, adult; Z80.3 Family history of malignant neoplasm of breast; Z82.49 Family history of ischemic heart disease and other diseases of the circulatory system; Z86.711 Personal history of pulmonary embolism; Z87.891 Personal history of nicotine dependence
CPT/HCPCS: 80048; 80053; 80069; 81003; 82306; 82330; 82607; 83540; 83735; 83970; 84100; 84132 91; 84443; 84466; 85027; 87040; 87077; 87086 GA; 87186; 93005; 94640; 94640 76; 99281; 99285; G0378; G8978 GP CI; G8979 GP CH; G8980 GP CI; J0610; J0744; J3475; J7030; J7050

== ENCOUNTER 2017-05-29 16:50 | Emergency (ER) | payer OTHER, BC ==
[~2017-05-29] VITALS: Ht 154.9 cm; Wt 101.1 kg
[~2017-05-29 16:50] MED LIST changes: +CARDIZEM CD120 M1 PO; +FAMOTIDINE20 MG PO; +FUROSEMIDE40 MG PO; +METOPROLOL SUCC25 MG PO; +PANTOPRAZOLE SO40 MG PO; +SPIRIVA RESPIMAT4 GM IH; +VITAMIN D31000 UNI2 PO
[2017-05-29 18:54] LABS: BASOPHIL (%) 0.7 % (0-1); EOSINOPHIL (%) 2.1 % (0-5); EOSINOPHIL COUNT 0.1 K/uL (0-0.3); HEMATOCRIT 35.7 % (36.0-46.0); HEMOGLOBIN 11.7 G/DL (11.9-15.5); IMMATURE GRANULOCYTE (%) 0.3 % (0.0-0.7); LYMPHOCYTE (%) 21.9 % (15-42); LYMPHOCYTE COUNT 1.3 K/uL (1.0-2.8); MCH 30.5 PG (29.0-34.0); MCHC 32.8 G/DL (30.0-36.0); MONOCYTE (%) 9.9 % (3-12); MONOCYTE COUNT 0.6 K/uL (0-0.8); NEUTROPHIL (%) 65.1 % (45-76); NEUTROPHIL COUNT 3.8 K/uL (1.8-6.4); PLATELET COUNT 218 K/uL (156-360); RBC DIS.WIDTH-CV 13.2 % (11.8-14.6); RBC DIS.WIDTH-SD 45.1 % (39-53); RED BLOOD COUNT 3.83 M/uL (3.80-5.20); WHITE BLOOD COUNT 5.8 K/uL (4.1-10.2)
[2017-05-29 18:57] LABS: MCV 93.2 FL (83-99)
[2017-05-29 19:04] LABS: ALBUMIN 3.7 g/dL (3.2-4.8); CHLORIDE 97 mEq/L (99-109); POTASSIUM 3.9 mEq/L (3.7-5.4); SODIUM 139 mEq/L (136-147)
[2017-05-29 19:07] LABS: GLUCOSE 95 mg/dL (70-99); TOTAL PROTEIN 7.3 g/dL (6.4-8.3)
[2017-05-29 19:10] LABS: ALKALINE PHOSPHATASE 99 IU/L (3-129); SERUM ETHYL ALCOHOL < 10 mg/dL
[2017-05-29 19:11] LABS: GFR ESTIMATE (CALCULATED) 26 mL/min/
[2017-05-29 19:12] LABS: AST (GOT) 21 IU/L (2-34); DIRECT BILIRUBIN 0.6 mg/dL (0.0-0.3); UREA NITROGEN (BUN) 37 mg/dL (9-23)
[2017-05-29 19:13] LABS: ALT (GPT) 15 IU/L (3-49)
[2017-05-29 19:16] LABS: TROP-I INTERPRETATION NEGATIVE; TROPONIN-I < 0.01 ng/mL (0.0-0.30)
[2017-05-30 00:11] VITALS: BP 137/86
[2017-05-30 00:24] LABS: APPEARANCE CLEAR ((CLEAR)); BILIRUBIN NEGATIVE; BLOOD NEGATIVE; COLOR YELLOW ((YELLOW)); GLUCOSE (STRIP) NEGATIVE; KETONES NEGATIVE; LEUKOCYTES NEGATIVE; NITRITE POSITIVE; PROTEIN (STRIP) NEGATIVE; SPECIFIC GRAVITY 1.008 (1.000-1.030); UROBILINOGEN 0.2 MG/DL (0.2-1.0)
[2017-05-30 00:33] LABS: AMPHETAMINE NEGATIVE (500 ng/mL); BARBITURATES PRESUMPTIVE POSITIVE (200 ng/mL); BENZODIAZEPINES NEGATIVE (150 ng/mL); BUPRENORPHINE NEGATIVE (10 ng/mL); COCAINE NEGATIVE (150 ng/mL); METHADONE NEGATIVE (200 ng/mL); METHAMPHETAMINE NEGATIVE (500 ng/mL); OPIATES (MORPHINE) NEGATIVE (100 ng/mL); OXYCODONE NEGATIVE (100 ng/mL); PHENCYCLIDINE NEGATIVE (25 ng/mL); PROPOXYPHENE NEGATIVE (300 ng/mL); THC CANNABINOIDS NEGATIVE (50 ng/mL); TRICYCLIC ANTIDEPRESSANTS NEGATIVE (300 ng/mL)
[2017-05-30 00:36] LABS: BACTERIA RARE /HPF; EPITHELIAL CELLS RARE /HPF; HYALINE CASTS 0-5 /LPF; MUCUS TRACE /LPF; RED BLOOD CELLS 0-5 /HPF (0-5); WHITE BLOOD CELLS 0-5 /HPF (0-5)
== END 2017-05-30 00:20 ==
LOC: EME 16:50
PROVIDERS: Physician Assistant
DX: R45.6 Violent behavior (principal); E86.0 Dehydration; I13.0 Hypertensive heart and chronic kidney disease with heart failure and stage 1 through stage 4 chronic kidney disease, or unspecified chronic kidney disease; N18.9 Chronic kidney disease, unspecified; M19.90 Unspecified osteoarthritis, unspecified site; J45.909 Unspecified asthma, uncomplicated; F33.1 Major depressive disorder, recurrent, moderate; F41.9 Anxiety disorder, unspecified; F41.0 Panic disorder [episodic paroxysmal anxiety]; Z04.6 Encounter for general psychiatric examination, requested by authority; Z87.891 Personal history of nicotine dependence; Z90.49 Acquired absence of other specified parts of digestive tract; Z88.5 Allergy status to narcotic agent; Z88.8 Allergy status to other drugs, medicaments and biological substances
CPT/HCPCS: 71010; 80048; 80076; 81003; 82607; 84443; 84484; 84999; 85025; 90837; 99281; 99285; G0480